=== PATIENT | female | born 1990 | race Caucasian/White ===

== ENCOUNTER 2017-07-11 11:36 | Outpatient (CLI) | payer MEDICAID ==
[2017-07-11 12:19] LABS: ADD MAN DIFF? NO; COLLECTION PERIOD 24 hrs
[2017-07-11 12:23] LABS: BASOPHILS % 0.4 % (0.0-2.0); EOSINOPHILS % 0.5 % (0.0-7.0); HEMATOCRIT 36.4 % (37.0-47.0); HEMOGLOBIN 12.7 g/dl (12.0-16.0); LYMPHOCYTES # 1.7 10^3/ul (0.8-2.9); LYMPHOCYTES % 21.3 % (15.0-51.0); MEAN CORPUSCULAR HEMOGLOBIN 30.2 pg (29.0-33.0); MEAN CORPUSCULAR HGB CONC 34.9 g/dl (32.0-37.0); MEAN CORPUSCULAR VOLUME 86.5 fl (82.0-101.0); MEAN PLATELET VOLUME 11.8 fl (7.4-10.4); MONOCYTE # 0.6 10^3/ul (0.3-0.9); MONOCYTES % 6.9 % (0.0-11.0); NEUTROPHIL # 5.5 10^3/ul (1.6-7.5); NEUTROPHILS % 68.8 % (39.0-77.0); PLATELET COUNT 187 10^3/UL (140-415); RED BLOOD COUNT 4.21 10^6/ul (4.20-5.40)
[2017-07-11 12:45] LABS: ALANINE AMINOTRANSFERASE 31 IU/L (13-69); ALBUMIN 3.4 g/dl (3.3-4.9); ALKALINE PHOSPHATASE 65 IU/L (42-121); ANION GAP 11 (8-16); ASPARTATE AMINO TRANSFERASE 24 IU/L (15-46); BILIRUBIN,INDIRECT 0.1 mg/dl (0-1.1); BILIRUBIN,TOTAL 0.1 mg/dl (0.2-1.3); BLOOD UREA NITROGEN 4 mg/dl (7-20); CALCIUM 8.7 mg/dl (8.4-10.2); CARBON DIOXIDE 23 mmol/L (21-31); CHLORIDE 106 mmol/L (97-110); CREATININE 0.49 mg/dl (0.44-1.00); GLUCOSE 94 mg/dl (70-220); POTASSIUM 3.9 mmol/L (3.5-5.1); SODIUM 136 mmol/L (135-144); TOTAL PROTEIN 6.8 g/dl (6.1-8.1); URIC ACID 3.6 mg/dl (3.1-7.9)
[2017-07-11 12:52] LABS: INR 0.91; PROTIME 12.3 Sec (11.9-14.9)
[2017-07-11 12:53] LABS: PARTIAL THROMBOPLASTIN TIME 28.5 Sec (25.0-35.0)
[2017-07-11 13:05] LABS: COLLECTION PERIOD 24 hrs; CREATININE CLEARANCE 241.7 mls/min (84.0-162.0); CREATININE,URINE RANDOM 63.17 mg/dl (20-320); SCRET 0.49 mg/dl (0.44-1.00); VOLUME 2700 ml/24hrs
[2017-07-11 13:07] LABS: VOLUME 2700 mls
== END 2017-07-11 14:05 | disposition home or self-care (01) ==
LOC: OBT 11:36 → L-D 11:36 → OBT 14:05
DX: O13.2 Gestational [pregnancy-induced] hypertension without significant proteinuria, second trimester (principal); Z3A.24 24 weeks gestation of pregnancy
CPT/HCPCS: 36415; 76815; 80053; 82575; 84156; 84560; 85025; 85384; 85610; 85730